=== PATIENT | female | born 1995 | race Two or more races ===

== ENCOUNTER → 2021-03-19 | Outpatient (CLI) | payer BC, OTHER | END | disposition home or self-care (01) | LOC: STAR 08:22 | PROVIDERS: ATTEND Otolaryngology | DX: Z20.822 Contact with and (suspected) exposure to COVID-19 (principal); J35.1 Hypertrophy of tonsils | CPT/HCPCS: U0003 ==

== ENCOUNTER 2021-03-23 06:00 | Day surgery (SDC) | payer BC, OTHER ==
[~2021-03-23] VITALS: Ht 165.1 cm; Wt 84.9 kg
[2021-03-23 06:38] VITALS: BP 141/69
[2021-03-23] MEDS ORDERED: EPINEPHRINE 1 MG/ML, 1ML ONE (06:52)
[2021-03-23] MEDS ORDERED: LIDOCAINE/PF 1%, 30ML ONE (06:52)
[2021-03-23] MEDS ORDERED: LACTATED RINGERS 1,000 ML IV SCH (07:00)
[2021-03-23] MEDS ORDERED: LIDOCAINE-MPF 1%, 2ML INFIL ONE (07:00)
[2021-03-23] MEDS ORDERED: CHLORHEXIDINE 15 ML UDC PO ONE (07:00)
[2021-03-23] MEDS ORDERED: FENTANYL PF 250 MCG/5ML ONE (07:14)
[2021-03-23] MEDS ORDERED: PROPOFOL 50 ML ONE (07:14)
[2021-03-23] MEDS ORDERED: MIDAZOLAM 1 MG/ML, 2ML ONE (07:14)
[2021-03-23] MEDS ORDERED: PROMETHAZINE 25 MG/ML, 1ML IVPush PRN (08:00)
[2021-03-23] MEDS ORDERED: ONDANSETRON 2MG/ML, 2ML IVPush PRN (08:00)
[2021-03-23] MEDS ORDERED: EPHEDRINE 50 MG/ML, 1ML IM PRN (08:00)
[2021-03-23] MEDS ORDERED: DIPHENHYDRAMINE 50 MG/ML, 1ML IVPush PRN (08:00)
[2021-03-23] MEDS ORDERED: HYDROmorphone 1 MG/ML, 1ML INJ IVPush PRN (08:00)
[2021-03-23] MEDS ORDERED: EPHEDRINE 50 MG/ML, 1ML IVPush PRN (08:00)
[2021-03-23] MEDS ORDERED: MEPERIDINE/PF 25MG/0.5ML IVPush PRN (08:00)
[2021-03-23] MEDS ORDERED: DIAZEPAM 5 MG/ML, 2ML IVPush PRN (08:00)
[2021-03-23] MEDS ORDERED: LABETALOL 5MG/ML, 20ML IV PRN (08:00)
[2021-03-23] MEDS ORDERED: OXYcodone 5 MG/5 ML ORAL.SOL UDC PO PRN (08:00)
[2021-03-23] MEDS ORDERED: ACETAMINOPHEN 325 MG TABLET PO PRN (08:00)
[2021-03-23] MEDS ORDERED: FENTANYL PF 100 MCG/2ML IV PRN (08:00)
[2021-03-23] MEDS ORDERED: FENTANYL PF 100 MCG/2ML ONE (08:29)
[2021-03-23] MEDS ORDERED: ACETAMINOPHEN 650 MG/20.3 ML UDC ONE (08:40)
[2021-03-23] MEDS ORDERED: OXYcodone 5 MG/5 ML ORAL.SOL UDC ONE (08:40)
[2021-03-23] MEDS ORDERED: SUCCINYLCHOLINE 20 MG/ML, 10ML ONE (11:41)
[2021-03-23] MEDS ORDERED: ROCURONIUM 10MG/ML,5ML ONE (11:41)
[2021-03-23] MEDS ORDERED: PROPOFOL 10 MG/ML, 20ML ONE (11:41)
== END 2021-03-23 10:10 | disposition home or self-care (01) ==
LOC: OUT 06:00
PROVIDERS: ATTEND Otolaryngology
DX: J03.91 Acute recurrent tonsillitis, unspecified (principal); Z79.899 Other long term (current) drug therapy
CPT/HCPCS: 42826; 81025; 88305; J0171; J0330; J2250; J2704; J3010; J7120